=== PATIENT | female | born 1990 | race Two or more races ===

== ENCOUNTER 2016-12-06 12:47 | Emergency (ER) | payer MEDICAID ==
[2016-12-06 12:58] VITALS: BP 118/69; PULSE 73; RESP 16; TEMP 98.4; O2SAT 96
[2016-12-06] MEDS ORDERED: IBUPROFEN 200 MG TAB PO ONE (13:01)
--- NOTE | 2016-12-06 13:10 | EDPHY ---
H & P Stated Complaint: ST x3 days, denies fever. Feels "hot" Time Seen by Provider: 12/06/16 13:02 HPI/ROS: CHIEF COMPLAINT: Sore throat HISTORY OF PRESENT ILLNESS: Patient is a 26-year-old female who comes to the emergency department complaining of a sore throat. She states that it began 3 days ago. She has not had a fever. She denies sinus congestion headaches or neck ache. She is been trying several [id number]-[id number] medications without significant relief. REVIEW OF SYSTEMS: Constitutional: denies: chills, fever, recent illness, recent injury EENTM: See HPI Respiratory: denies: cough, shortness of breath Cardiac: denies: chest pain, irregular heart rate, lightheadedness, palpitations Gastrointestinal/Abdominal: denies: abdominal pain, diarrhea, nausea, vomiting, blood streaked stools Genitourinary: denies: dysuria, frequency, hematuria, pain Musculoskeletal: denies: joint pain, muscle pain Skin: denies: lesions, rash, jaundice, bruising Neurological: denies: headache, numbness, paresthesia, tingling, dizziness, weakness Hematologic/Lymphatic: denies: blood clots, easy bleeding, easy bruising Immunologic/allergic: denies: HIV/AIDS, transplant EXAM: GENERAL: Well-appearing, well-nourished and in no acute distress. HEAD: Atraumatic, normocephalic. EYES: Pupils equal round and reactive to light, extraocular movements intact, sclera anicteric, conjunctiva are normal. ENT: TMs normal, nares patent, oropharynx clear without exudates. Moist mucous membranes. NECK: Normal range of motion, supple without lymphadenopathy or JVD. LUNGS: Breath sounds clear to auscultation bilaterally and equal. No wheezes rales or rhonchi. HEART: Regular rate and rhythm without murmurs, rubs or gallops. ABDOMEN: Soft, nontender, normoactive bowel sounds. No guarding, no rebound. No masses appreciated. BACK: No CVA tenderness, no spinal tenderness, step-offs or deformities EXTREMITIES: Normal range of motion, no pitting or edema. No clubbing or cyanosis. NEUROLOGICAL: Cranial nerves II through XII grossly intact. Normal speech, normal gait. 5/5 strength, normal movement in all extremities, normal sensation PSYCH: Normal mood, normal affect. SKIN: Warm, dry, normal turgor, no visible rashes or lesions. Source: Patient Exam Limitations: No limitations - Personal History LMP (Females 10-55): 15-21 Days Ago - Medical/Surgical History Hx Asthma: No Hx Chronic Respiratory Disease: No Hx Diabetes: No Hx Cardiac Disease: No Hx Renal Disease: No Hx Cirrhosis: No Hx Alcoholism: No Hx HIV/AIDS: No Hx Splenectomy or Spleen Trauma: No Other PMH: Med hx-none. Surg-none - Family History Significant Family History: No pertinent family hx - Social History Smoking Status: Never smoked Alcohol Use: Sober Drug Use: None Constitutional: Initial Vital Signs Temperature (C) 36.9 C 12/06/16 12:53 Heart Rate 73 12/06/16 12:53 Respiratory Rate 16 12/06/16 12:53 Blood Pressure 118/69 12/06/16 12:53 O2 Sat (%) 96 12/06/16 12:53 O2 Delivery Mode Room Air Allergies/Adverse Reactions: Penicillins Allergy (Verified 12/06/16 12:53) Home Medications: Medication Instructions Recorded NK [No Known Home Meds] 12/06/16 Medical Decision Making ED Course/Re-evaluation: Patient's exam is unremarkable. No exudate or swelling or erythema. No splenomegaly. I will obtain a rapid strep. 1:20 p.m. the patient's rapid strep is negative. I will treat her with Decadron and pain medication. She understands and agrees with this plan. Differential Diagnosis: Partial list of the Differential diagnosis considered include but were not limited to; strep throat, viral pharyngitis and although unlikely based on the history and physical exam, I also considered upper respiratory tract infection, meningitis, sepsis, mononucleosis, abscess. I discussed these differential diagnoses and the plan with the patient as well as the usual and expected course. The patient understands that the diagnosis is provisional and that in medicine we are not always correct and that further workup is often warranted. Usual and customary warnings were given. All of the patient's questions were answered. The patient was instructed to return to the emergency department should the symptoms at all worsen or return, otherwise to followup with the physician as we discussed. - Data Points Medications Given: Discontinued Medications Dexamethasone (Decadron) 10 mg PO EDNOW ONE Stop: 12/06/16 13:27 Last Admin: 12/06/16 13:35 Dose: 10 mg Ibuprofen (Motrin) 400 mg PO EDNOW ONE Stop: 12/06/16 13:02 Last Admin: 12/06/16 13:18 Dose: 400 mg Departure - Departure Disposition: Home, Routine, Self-Care Clinical Impression: Acute pharyngitis Qualifiers: Pharyngitis/tonsillitis etiology: unspecified etiology Qualified Code(s): J02.9 - Acute pharyngitis, unspecified Condition: Fair Instructions: Pharyngitis (ED) Referrals: NONE *PRIMARY CARE P,. [Primary Care Provider] - As per Instructions Jonny Frost MD [Medical Doctor] - As per Instructions
[2016-12-06] MEDS ORDERED: DEXAMETHASONE 4 MG TAB PO ONE (13:26)
== END 2016-12-06 13:37 | disposition home or self-care (01) ==
LOC: CED 12:47
DX: J02.9 Acute pharyngitis, unspecified (principal)
CPT/HCPCS: 87880-PO

== ENCOUNTER 2017-04-25 15:36 | Emergency (ER) | payer MEDICAID ==
--- NOTE | 2017-04-25 15:43 | EDPHY ---
H & P HPI/ROS: HPI CHIEF COMPLAINT: Right lateral pain. HISTORY OF PRESENT ILLNESS: This patient 26-year-old female, otherwise healthy no significant medical history does not take any daily medications presents emergency room with right lateral ankle pain. Patient states that she got intoxicated last night when she arrived home she was wearing high heels she went to go get in bed turned her ankle and rolled her ankle inward. She developed right lateral ankle pain and swelling. She has been icing it, elevating it take anti-inflammatory pain medicine. She does state the swelling has went down. But continues to have some mild swelling and pain. Past Medical History: Denies medical history Past Surgical History: Denies surgical history Social History: Denies daily use drugs alcohol tobacco products. Did drink alcohol last night. Family History: Noncontributory ROS REVIEW OF SYSTEMS: A comprehensive 10 point review of systems is otherwise negative aside from elements mentioned in the history of present illness. Exam Constitutional appears well nontoxic, triage nursing summary reviewed, vital signs reviewed, awake/alert. Eyes normal conjunctivae and sclera, EOMI, PERRLA. HENT normal inspection, atraumatic, moist mucus membranes, no epistaxis, neck supple/ no meningismus, no raccoon eyes. Respiratory clear to auscultation bilaterally, normal breath sounds, no respiratory distress, no wheezing. Cardiovascular rate normal, regular rhythm, no murmur, no edema, distal pulses normal. Gastrointestinal soft, non-tender, no rebound, no guarding, normal bowel sounds, no distension, no pulsatile mass. Genitourinary no CVA tenderness. Musculoskeletal no midline vertebral tenderness, full range of motion, no calf swelling, no tenderness of extremities, no meningismus, good pulses, neurovascularly intact. Right lower extremity: Tender palpation over the lateral malleolus, swelling noted, otherwise neurovascular intact good distal pulse. Good cap refill. Good sensation. Skin pink, warm, & dry, no rash, skin atraumatic. Neurologic awake, alert and oriented x 3, AAOx3, moves all 4 extremities equally, motor intact, sensory intact, CN II-XII intact, normal cerebellar, normal vision, normal speech. Psychiatric normal mood/affect. Heme/Lymph/Immune no lymphadenopathy. Differential Diagnosis: Includes but is not limited to in a particular order right ankle sprain, soft tissue injury, right ankle fracture, avulsion fracture. Medical Decision Making: Plan for this patient x-ray right ankle, walking boot orthopedic follow-up as needed. Recommend the patient elevated, ice, anti-inflammatory pain medicine return emergency room if any worsening symptoms questions or concerns. She understands. Re-evaluation: ED ankle x-ray reviewed by myself. No acute fracture. Osteoarthritis present. Old fracture distal fibula. Nothing new. Updated patient. Patient walking boot. Return precautions discussed. Orthopedic follow-up as needed. Source: Patient - Medical/Surgical History Hx Asthma: No Hx Chronic Respiratory Disease: No Hx Diabetes: No Hx Cardiac Disease: No Hx Renal Disease: No Hx Cirrhosis: No Hx Alcoholism: No Hx HIV/AIDS: No Hx Splenectomy or Spleen Trauma: No Other PMH: Med hx-none. Surg-none - Social History Smoking Status: Never smoked Constitutional: Initial Vital Signs Temperature (C) 36.7 C 04/25/17 15:52 Heart Rate 90 04/25/17 15:52 Respiratory Rate 18 04/25/17 15:52 Blood Pressure 125/84 H 04/25/17 15:52 O2 Sat (%) 95 04/25/17 15:52 O2 Delivery Mode Room Air Allergies/Adverse Reactions: Penicillins Allergy (Verified 04/25/17 15:52) Home Medications: Medication Instructions Recorded NK [No Known Home Meds] 12/06/16 Departure - Departure Disposition: Home, Routine, Self-Care Clinical Impression: Ankle sprain Qualifiers: Encounter type: initial encounter Involved ligament of ankle: unspecified ligament Laterality: right Qualified Code(s): S93.401A - Sprain of unspecified ligament of right ankle, initial encounter Condition: Good Instructions: Ankle Sprain (ED) Additional Instructions: 1. Elevate her foot. 2. Ice her ankle. 3. Walking boot for comfort. 4. Follow up with Orthopedics as needed. 5. Anti-inflammatories as needed. Referrals: NONE *PRIMARY CARE P,. [Primary Care Provider] - As per Instructions Lorna Ceballos MD [Medical Doctor] - As per Instructions
[2017-04-25 15:55] VITALS: RESP 18
[2017-04-25 16:25] VITALS: BP 132/82; PULSE 68; TEMP 97.9; O2SAT 96
== END 2017-04-25 16:54 | disposition home or self-care (01) ==
LOC: CED 15:36
DX: S93.401A Sprain of unspecified ligament of right ankle, initial encounter (principal); X58.XXXA Exposure to other specified factors, initial encounter; Y92.410 Unspecified street and highway as the place of occurrence of the external cause
CPT/HCPCS: 73610-PO; L4386

== ENCOUNTER 2017-07-13 11:51 | Emergency (ER) | payer MEDICAID ==
[2017-07-13 12:05] VITALS: BP 131/85; PULSE 85; RESP 18; TEMP 97.9; O2SAT 97
--- NOTE | 2017-07-13 12:12 | EDPHY ---
H & P Time Seen by Provider: 07/13/17 12:02 HPI/ROS: CHIEF COMPLAINT: Vaginal itching HISTORY OF PRESENT ILLNESS: 27-year-old female presents with vaginal itching. Onset of vaginal itching 4 days ago. Associated with a mild whitish vaginal discharge. She is using an anti itch medication over the counter without relief. She does not know the name of this medication, but does not think that it is an antifungal medication such as Monistat. No prior similar symptoms. She had a hormone implant placed in April 2017. No period for 3 months and is concerned she may be . REVIEW OF SYSTEMS: Constitutional: No fever Eyes: No drainage ENT: No sore throat Respiratory: No cough, no shortness of breath Cardiac: No chest pain Gastrointestinal: no vomiting, no abdominal pain Genitourinary: no dysuria Musculoskeletal: No leg pain or swelling Skin: No rash Neurological: No headache Psychiatric: No depression Past Medical/Surgical History: Denies Social History: single Smoking Status: Former smoker Physical Exam: General Appearance: Alert, pleasant Eyes: Pupils equal and round, no conjunctival pallor ENT, Mouth: Mucous membranes moist Neck: Normal inspection Respiratory: Normal respiratory rate Cardiovascular: Regular rate and rhythm Gastrointestinal: Abdomen is soft and nontender Genitourinary: BUSV negative, vaginal vault-whitish discharge, os closed, no CMT Neurological: A&O, nonfocal exam Skin: Warm and dry Psychiatric: Mood and affect normal Constitutional: Initial Vital Signs Temperature (C) 36.6 C 07/13/17 12:01 Heart Rate 85 07/13/17 12:01 Respiratory Rate 18 07/13/17 12:01 Blood Pressure 131/85 H 07/13/17 12:01 O2 Sat (%) 97 07/13/17 12:01 O2 Delivery Mode Room Air Allergies/Adverse Reactions: Penicillins Allergy (Verified 07/13/17 12:01) Home Medications: Medication Instructions Recorded Miconazole Nitrate [Monistat 3] 1 each VG DAILY #1 kit 07/13/17 Medical Decision Making ED Course/Re-evaluation: Clinical presentation c/w vaginal yeast infection. Negative preg test. Will rx with Monistat, pending vaginal/cervix swab results. Differential Diagnosis: Differential diagnosis includes though it is not limited to ectopic , ovarian cyst, ovarian torsion, PID, UTI, appendicitis. - Data Points Laboratory Results: 07/13/17 07/13/17 07/13/17 12:25 12:20 12:20 Urine Test NEGATIVE Lupe species DNA Pending C.trachomatis RNA (TMA) Pending Gardnerella DNA Probe Pending N.gonorrhoeae RNA (TMA) Pending Trichomonas DNA Probe Pending Departure - Departure Disposition: Home, Routine, Self-Care Clinical Impression: Vaginal itching Condition: Good Instructions: Yeast Infection (ED) Additional Instructions: I suspect that you have a yeast infection. However, the test results will not be available for 24-48 hours. While we are waiting for the test results, start taking Monistat. Do not use other creams or lotions in the vaginal/vulva area. Call for test results in 24 hours. Referrals: Caitlin Zheng MD [Medical Doctor] - As per Instructions (Call to make an appointment with Dr. Zheng or with your physician.) Prescriptions: Miconazole Nitrate [Monistat 3] 1 each VG DAILY #1 kit
[2017-07-14 12:57] LABS: GC AMPLIFICATION GENPROBE NEGATIVE (NEGATIVE)
== END 2017-07-13 12:50 | disposition home or self-care (01) ==
LOC: CED 11:51
DX: L29.2 Pruritus vulvae (principal); Z87.891 Personal history of nicotine dependence
CPT/HCPCS: 81025-PO

== ENCOUNTER 2017-09-08 09:50 | Emergency (ER) | payer MEDICAID ==
--- NOTE | 2017-09-08 10:16 | EDPHY ---
H & P Time Seen by Provider: 09/08/17 09:57 HPI/ROS: This patient complains of a 2 day history of left calf pain. Onset was atraumatic and followed after an [address] 6 days prior to the onset of symptoms. She reports subjective sense of mild swelling to the affected calf and a prominence of veins in the affected leg. She tried ice ibuprofen but reports there has been steady increase in achy nature of the pain that is 3/10 at baseline is 7/10 [address]. She notes no other exacerbating factors. She came here by private vehicle for further evaluation of the symptoms. ROS: Constitutional: No fevers The integumentary: No overlying skin rash or skin injuries Musculoskeletal: No recent injuries. No knee or ankle pain in the affected lower extremity. No other joint pains. Neuro: No numbness or tingling 5 point ROS is otherwise negative Past Medical/Surgical History: No history of DVT or PE No family history of DVT or PE Social History: 8 hr travel by car 7 days ago Smoking Status: Never smoked Physical Exam: Physical Exam Vital signs are normal. General: No acute distress Eyes: Pupils equal and react to light. Extraocular motions are intact. Lungs: No respiratory distress. Cardiac: Brisk capillary refill is intact throughout. Pulses are 2+ and symmetric in the affected extremity. The patient has 2+ symmetric dorsalis pedis and posterior tibialis pulses bilateral lower extremities Musculoskeletal: Left lower extremity is notable for posterior calf tenderness without obvious swelling. Positive Homans. Prep very mild prominence of superficial vein medially. No Achilles swelling tenderness or deformity. Skin: No rash or pallor. No erythema to the lower extremity Neuro: Alert and oriented x3 with no sensorimotor deficits. Initial differential diagnosis: DVT, calf strain, Achilles injury Constitutional: Initial Vital Signs Temperature (C) 37 C 09/08/17 09:55 Heart Rate 80 09/08/17 09:55 Respiratory Rate 18 09/08/17 09:55 Blood Pressure 130/74 H 09/08/17 09:55 O2 Sat (%) 95 09/08/17 09:55 O2 Delivery Mode Room Air Allergies/Adverse Reactions: Penicillins Allergy (Verified 09/08/17 09:59) Rash Home Medications: Medication Instructions Recorded NK [No Known Home Meds] 09/08/17 MDM/Departure - MDM Imaging: Discussed imaging studies w/ outbound call center representative Radiologist ED Course/Re-evaluation: DVT risk factors: control Recent azzczftptyudaq-imizqeos-[address] Doppler ultrasound lower extremity ordered shortly after evaluation of the patient. Doppler ultrasound negative for DVT. Discussion: Patient with calf tenderness and pain I think is attributable to calf muscle strain. I counseled her regarding this. She understands need to return to the emergency department should she have any significant worsening of symptoms despite the treatment plan. - Depart Disposition: Home, Routine, Self-Care Clinical Impression: Pain of left calf Condition: Good Instructions: Muscle Strain (ED) Additional Instructions: Diagnosis: Left calf pain You likely have a calf muscle strain Your Doppler ultrasound was negative for deep venous thrombosis. Plan: Ibuprofen, Tylenol and gentle stretches. Here symptoms should gradually improve over the next 3-7 days. Follow up with primary care physician for any ongoing symptoms Return emergency department for any significant worsening of her symptoms despite the treatment plan. Referrals: NONE *PRIMARY CARE P,. [Primary Care Provider] - As per Instructions
[2017-09-08 11:29] VITALS: BP 114/75
== END 2017-09-08 11:17 | disposition home or self-care (01) ==
LOC: CED 09:50
DX: M79.605 Pain in left leg (principal)
CPT/HCPCS: 93971-PO